=== PATIENT | male | born 1935 | race Caucasian/White ===

== ENCOUNTER 2020-10-27 22:09 | Inpatient (IN) | payer MEDICARE, OTHER ==
[~2020-10-27] VITALS: Ht 188 cm; Wt 93.6 kg
[~2020-10-27 22:09] MED LIST: ACETAMINOPHEN500 M1 PO; ALTACE2.5 MG PO; ANTIVERT25 MG PO; ASPIRIN CHEWABL81 MG PO; CIMETIDINE400 MG PO; ELIQUIS5 MG PO; GABAPENTIN600 MG PO; NITROSTAT0.4 MG SL; NORCO 10-325 T1 EACH PO; PRAVACHOL20 MG PO; TOPROL XL 25MG25 MG PO; ZERVIATE1 EACH PO
[2020-10-28 02:25] LABS: BASOPHIL 0.4 % (0-2); EOSINOPHIL 2.5 % (0-7); HCT 55.4 % (42.0-52.0); HGB 19.3 g/dl (13.2-18.0); MCH 30.5 pg (25.0-31.0); MCHC 34.8 g/dL (32.0-36.0); MCV 87.5 fL (78.0-100.0); MPV 10.6 fL (6.0-9.5); NEUTROPHIL 75.4 % (41-80); NRBC 0; PLT 400 K/uL (150-400); RBC 6.33 M/uL (4.70-6.00); RDW 16.1 % (11.5-14.0); WBC 7.6 K/uL (4.0-10.5)
[2020-10-28 03:09] LABS: ALBUMIN 3.2 g/dL (3.4-5.0); BILIRUBIN - TOTAL 3.5 mg/dL (0.2-1.0); BUN/CREAT RATIO (CALC) 20.2 RATIO; C-REACTIVE PROTEIN 12.4 mg/dL (<=0.90); CREATININE 1.29 mg/dL (0.67-1.17); GLOBULIN (CALCULATION) 4.1 g/dL; MAGNESIUM 1.9 mg/dL (1.8-2.4); POTASSIUM 3.8 mmol/L (3.5-5.1); TOTAL PROTEIN 7.3 g/dL (6.4-8.2)
[2020-10-28 03:53] LABS: BILIRUBIN 1+ mg/dL (NEGATIVE); BLOOD NEGATIVE Ery/uL (NEGATIVE); CLARITY CLEAR (CLEAR); COLOR YELLOW (YELLOW); GLUCOSE (U) NORMAL (NORMAL); LEUKOCYTES NEGATIVE Leu/uL (NEGATIVE); NITRITE NEGATIVE (NEGATIVE); PROTEIN 1+ mg/dL (NEGATIVE); UROBILINOGEN >=8.0 mg/dL (0.2-1.0); pH 5.5 (5.0-9.0)
[2020-10-28 04:02] LABS: RENAL EPITHELIAL CELLS RARE
--- NOTE | 2020-10-28 10:18 | NUR ---
10/29/20 Mr. Duff was living at home with his spouse. However, his spouse is currently hospitalized at [facility]. Mr. Patel reports that she will be admitted to [facility]. - Mr. Patel does not have 02 or other DME at home. He would like [facility] to provide 02 if needed. He has requested [facility] at discharge for nursing services. A referral was made to [facility].
[2020-10-28] MEDS ORDERED: LASIX20 MG PO (12:09)
[2020-10-28] MEDS ORDERED: BACLOFEN 10MG T10 MG PO (12:10)
[2020-10-28 19:36] LABS: BUN/CREAT RATIO (CALC) 25.5 RATIO; CREATININE 1.1 mg/dL (0.67-1.17); POTASSIUM 3.7 mmol/L (3.5-5.1)
--- NOTE | 2020-10-29 04:46 | NUR ---
HEATING BLANKET APPLIED PER VERBAL ORDER FROM [employer] FOR RECTAL TEMP OF 94.6.
[2020-10-29 06:00] LABS: BASOPHIL 0.4 % (0-2); EOSINOPHIL 0 % (0-7); HCT 53.6 % (42.0-52.0); HGB 18.4 g/dl (13.2-18.0); LYMPHOCYTE 9.4 % (15-48); MCH 30.5 pg (25.0-31.0); MCHC 34.3 g/dL (32.0-36.0); MCV 88.9 fL (78.0-100.0); MONOCYTE 4.5 % (0-12); MPV 10.4 fL (6.0-9.5); NEUTROPHIL 84.6 % (41-80); NRBC 0; PLT 375 K/uL (150-400); RBC 6.03 M/uL (4.70-6.00); RDW 15.6 % (11.5-14.0); WBC 8.4 K/uL (4.0-10.5)
[2020-10-29 06:40] LABS: BUN/CREAT RATIO (CALC) 27.4 RATIO; CREATININE 1.06 mg/dL (0.67-1.17); MAGNESIUM 2.2 mg/dL (1.8-2.4); POTASSIUM 3.8 mmol/L (3.5-5.1)
--- NOTE | 2020-10-29 11:54 | NUR ---
10/29/20 Mr. Mercer lives at home. Two daughters, son-in-law and a granddaughter live in the home. He uses a cane for ambulation.
--- NOTE | 2020-10-30 05:03 | NUR ---
AROUND 0420, RN CHECKED ON PT. PT WAS STANDING AT THE SIDE OF THE BED USING THE URINAL. RN QUICKLY WENT IN TO ASSIST. PT. STATED THAT WHEN HE WANTS TO DO SOMETHING HE IS GOING TO DO IT NOW AND HE DOESNT NEED TO CALL ONE OF US FOR ANY HELP. I ENCOURAGED PT. TO CALL OUT FOR ASSISTANCE DUE TO AMOUNT OF WIRES CONNECTED TO PT. AND EXPLAINED THAT THIS IS A FALL RISK. ER,RN
[2020-10-30 05:29] LABS: BASOPHIL 0.2 % (0-2); EOSINOPHIL 0 % (0-7); HCT 51.2 % (42.0-52.0); HGB 17.6 g/dl (13.2-18.0); LYMPHOCYTE 5.5 % (15-48); MCH 30.2 pg (25.0-31.0); MCHC 34.4 g/dL (32.0-36.0); MPV 10.3 fL (6.0-9.5); NEUTROPHIL 86.9 % (41-80); NRBC 0; PLT 486 K/uL (150-400); RBC 5.82 M/uL (4.70-6.00); RDW 15.7 % (11.5-14.0); WBC 11.1 K/uL (4.0-10.5)
[2020-10-30 05:31] LABS: BUN/CREAT RATIO (CALC) 27.9 RATIO; CREATININE 1.04 mg/dL (0.67-1.17); MAGNESIUM 2.3 mg/dL (1.8-2.4); POTASSIUM 3.7 mmol/L (3.5-5.1)
[2020-10-30 11:04] LABS: ALBUMIN 2.8 g/dL (3.4-5.0); BILIRUBIN - TOTAL 1.7 mg/dL (0.2-1.0); GLOBULIN (CALCULATION) 3.1 g/dL; TOTAL PROTEIN 5.9 g/dL (6.4-8.2)
--- NOTE | 2020-10-30 16:06 | NUR ---
10/30/20 02 has been delivered to patient's room. Please call [facility] at [phone] to arrange delivery of concentrator.
[2020-10-31 06:01] LABS: BASOPHIL 0.3 % (0-2); EOSINOPHIL 0 % (0-7); HCT 49.7 % (42.0-52.0); HGB 17.2 g/dl (13.2-18.0); LYMPHOCYTE 10.6 % (15-48); MCH 30.6 pg (25.0-31.0); MCHC 34.6 g/dL (32.0-36.0); MCV 88.3 fL (78.0-100.0); MONOCYTE 8.2 % (0-12); MPV 9.9 fL (6.0-9.5); NEUTROPHIL 80.1 % (41-80); NRBC 0; PLT 476 K/uL (150-400); RBC 5.63 M/uL (4.70-6.00); RDW 15.7 % (11.5-14.0); WBC 7.2 K/uL (4.0-10.5)
[2020-10-31 06:23] LABS: ALBUMIN 2.6 g/dL (3.4-5.0); BILIRUBIN - TOTAL 1.3 mg/dL (0.2-1.0); BUN/CREAT RATIO (CALC) 23.9 RATIO; CREATININE 0.88 mg/dL (0.67-1.17); GLOBULIN (CALCULATION) 3.4 g/dL; PHOSPHORUS 2.8 mg/dL (2.6-4.7); POTASSIUM 3.3 mmol/L (3.5-5.1)
[2020-10-31] MEDS ORDERED: DEXAMETHASONE 2M2 MG PO (10:19)
[2020-10-31] MEDS ORDERED: ATROVENT HFA12.9 GM INH (10:19)
[2020-10-31] MEDS ORDERED: PROVENTIL HFA6.7 GM INH (10:19)
== END 2020-10-31 12:00 | disposition home or self-care (01) | DRG 177 ==
LOC: FER 22:09 → FTCU 10-28 06:06 → FSNU 10-28 08:27 → FTCU 10-28 08:28
PROVIDERS: Emergency Medicine; Nurse Practitioner; ADMIT Internal Medicine
PROC: 8E0ZXY6 Isolation (ICD-10-PCS; principal; 2020-10-28)
PROC: XW033E5 Introduction of Remdesivir Anti-infective into Peripheral Vein, Percutaneous Approach, New Technology Group 5 (ICD-10-PCS; 2020-10-28)
DX: U07.1 COVID-19 (principal); J12.82 Pneumonia due to coronavirus disease 2019; I21.A1 Myocardial infarction type 2; J96.01 Acute respiratory failure with hypoxia; G93.41 Metabolic encephalopathy; I48.20 Chronic atrial fibrillation, unspecified; E11.9 Type 2 diabetes mellitus without complications; I11.0 Hypertensive heart disease with heart failure; I50.9 Heart failure, unspecified; E78.5 Hyperlipidemia, unspecified; I25.10 Atherosclerotic heart disease of native coronary artery without angina pectoris; I08.2 Rheumatic disorders of both aortic and tricuspid valves; Z87.442 Personal history of urinary calculi; Z98.890 Other specified postprocedural states; Z79.899 Other long term (current) drug therapy; Z87.891 Personal history of nicotine dependence; Z86.73 Personal history of transient ischemic attack (TIA), and cerebral infarction without residual deficits
CPT/HCPCS: 36415; 36600; 70450; 71250; 80048; 80053; 80076; 81001; 82728; 82803; 83605; 83690; 83735; 83880; 84100; 84145; 84443; 84484; 85025; 86140; 93005; 94640; 96372; 97165; 97530; C9399; J0456; J1100; J1650; J7030; J7050; U0002